=== PATIENT | male | born 1980 | race Caucasian/White ===

== ENCOUNTER 2017-05-22 06:10 | Day surgery (SDC) | payer OTHER ==
[~2017-05-22 06:10] MED LIST: ALBUTEROL0.63 MG/3 IH; AVAPRO300 MG PO; BUDEO.25 IH; NEXIUM40 M1 PO; ZYLOPRIM300 MG PO
== END 2017-05-22 15:15 | disposition home or self-care (01) ==
LOC: CIR.AMB 06:10
DX: K42.9 Umbilical hernia without obstruction or gangrene (principal)

== ENCOUNTER 2018-06-24 08:07 | Outpatient (CLI) | payer OTHER | END 2018-06-24 08:14 | disposition home or self-care (01) | LOC: RX STUDY 08:07 | DX: R13.19 Other dysphagia (principal) ==

== ENCOUNTER 2021-11-08 11:28 | Outpatient (CLI) | payer OTHER ==
[2021-11-08] MEDS ORDERED: ONGLYZA5 MG PO (13:00)
[2021-11-08] MEDS ORDERED: BYDUREON B2 MG/0.85 (13:00)
== END 2021-11-08 11:43 | disposition home or self-care (01) ==
LOC: SONOGRAMA 11:28
PROVIDERS: ATTEND Specialist
DX: D21.6 Benign neoplasm of connective and other soft tissue of trunk, unspecified (principal)

== ENCOUNTER 2021-11-10 07:13 | Day surgery (SDC) | payer OTHER ==
[~2021-11-10] VITALS: Ht 180.3 cm; Wt 108.9 kg
[~2021-11-10 07:13] MED LIST changes: +BYDUREON B2 MG/0.85; +ONGLYZA5 MG PO
== END 2021-11-10 13:50 | disposition home or self-care (01) ==
LOC: CIR.AMB 07:13
PROVIDERS: ATTEND Specialist
DX: D21.6 Benign neoplasm of connective and other soft tissue of trunk, unspecified (principal); Z20.822 Contact with and (suspected) exposure to COVID-19; I10 Essential (primary) hypertension; E78.00 Pure hypercholesterolemia, unspecified; Z86.16 Personal history of COVID-19; E11.9 Type 2 diabetes mellitus without complications; E66.9 Obesity, unspecified